=== PATIENT | male | born 1950 | race Asian ===

== ENCOUNTER 2017-10-28 14:46 | Inpatient (IN) | payer MEDICARE, OTHER ==
[~2017-10-28] VITALS: Ht 167.6 cm; Wt 70.5 kg
[~2017-10-28 14:46] MED LIST: AGGR20025 PO; CARV6 PO; DIVA250T45 PO; DOCU100C34 PO; OMEP20 PO; SIMV20TA6 PO
[2017-10-28 15:12] LABS: BASOPHILS % (AUTO) 0.8 % (0.0-2.0); EOSINOPHILS % (AUTO) 5.2 % (1.0-6.0); HEMATOCRIT 36.1 % (41-53); HEMOGLOBIN 12.3 g/dL (13.5-17.5); LYMPHOCYTES # (AUTO) 1.8 K/uL (1.0-4.8); LYMPHOCYTES % (AUTO) 18.7 % (22.0-44.0); MEAN CORPUSCULAR HEMOGLOBIN 30.3 pg (26.0-34.0); MEAN CORPUSCULAR VOLUME 89 fL (80-100); MONOCYTES # (AUTO) 0.6 K/uL (0.1-1.0); MONOCYTES % (AUTO) 6.2 % (2.0-9.0); NEUTROPHILS # (AUTO) 6.5 K/uL (1.8-7.7); NEUTROPHILS % (AUTO) 69.1 % (40.0-70.0); PLATELET COUNT (AUTO) 241 K/uL (150-450); RED BLOOD CELL COUNT(AUTO) 4.05 MIL/uL (4.50-5.90); RED CELL DISTRIBUTION WIDTH 14.3 % (11.5-14.5)
[2017-10-28 15:17] LABS: ANION GAP 10 mmol/L (8-16); CALCIUM, TOTAL 8.8 mg/dL (8.8-10.5); CARBON DIOXIDE 25 mmol/L (22-29); CHLORIDE 98 mmol/L (98-107); CREATININE 1.08 mg/dL (0.60-1.30); GLOMERULAR FILTR. RATE CALC > 60 mL/min (>60); GLUCOSE,RANDOM 195 mg/dL (70-110); POTASSIUM 4.1 mmol/L (3.5-5.1); SODIUM SERUM 133 mmol/L (136-145); UREA NITROGEN, BLOOD 17 mg/dL (7-18)
[2017-10-28 15:20] LABS: PROTHROMBIN TIME 10.7 SEC (9.4-11.6)
[2017-10-28 15:23] LABS: ALANINE AMINOTRANSFERASE 17 U/L (12-78); ALBUMIN 3.8 g/dL (3.4-5.0); ALKALINE PHOSPHATASE 47 U/L (46-116); ASPARTATE AMINOTRANSFERASE 15 U/L (15-37); BILIRUBIN,TOTAL 0.3 mg/dL (0.1-1.0); CREATINE KINASE, TOTAL 74 U/L (39-308); TOTAL PROTEIN, SERUM 8.7 g/dL (6.4-8.2)
[2017-10-28] MEDS ORDERED: ASPIRIN 325 MG EC TABLET PO ONE (15:45)
[2017-10-28 15:58] LABS: APPEARANCE,URINE CLEAR (CLEAR); BILIRUBIN,URINE NEGATIVE (NEGATIVE); GLUCOSE, URINE (UA) 100 mg/dL (NEGATIVE); KETONES,URINE NEGATIVE (NEGATIVE); LEUKOCYTE ESTERASE ,URINE NEGATIVE (NEGATIVE); NITRATE,URINE NEGATIVE (NEGATIVE); OCCULT BLOOD,URINE NEGATIVE (NEGATIVE); PROTEIN,URINE NEGATIVE (NEGATIVE); UROBILINOGEN,URINE 0.2 mg/dL (<=1.0)
[2017-10-28] MEDS ORDERED: METF500T6 PO (16:11)
[2017-10-28] MEDS ORDERED: LISI-662 PO (16:11)
[2017-10-28] MEDS ORDERED: AMLO-511 PO (16:11)
[2017-10-28] MEDS ORDERED: DUTA.5 PO (16:11)
[2017-10-28] MEDS ORDERED: CARV12 PO (16:11)
[2017-10-28] MEDS ORDERED: DIVA250T25 PO (16:11)
[2017-10-28] MEDS ORDERED: ASPI-989 PO (16:11)
[2017-10-28 16:21] LABS: VALPROIC ACID 34 mcg/mL (50-100)
[2017-10-28 16:22] LABS: RBC,URINE None Seen /HPF (0-2); WBC,URINE None Seen /HPF (0-5)
[2017-10-28 16:23] LABS: BACTERIA,URINE None Seen /HPF (None Seen); SQUAMOUS EPITHELIAL CELL,UR Rare /LPF (None Seen)
[2017-10-28] MEDS ORDERED: 0.9% SODIUM CHLORIDE 10 ML SYRINGE IVP PRN (16:30)
[2017-10-28] MEDS ORDERED: ACETAMINOPHEN 325 MG TABLET PO PRN (16:30)
[2017-10-28] MEDS ORDERED: ONDANSETRON HCL 4 MG/2 ML VIAL IVP PRN ×2 (16:30→17:30)
[2017-10-28] MEDS ORDERED: LORazepam 2 MG/ML VIAL IVP PRN (17:30)
[2017-10-28] MEDS ORDERED: ALBUTEROL SULFATE 2.5 MG/0.5 ML NEB SOLUTION NEB PRN (17:30)
[2017-10-28] MEDS ORDERED: INSULIN LISPRO 100 UNITS/ML SQ PRN (17:30)
[2017-10-28] MEDS ORDERED: MAGNESIUM HYDROXIDE SUSPENSION 30 ML UDCUP PO PRN (17:30)
[2017-10-28] MEDS ORDERED: DEXTROSE 50%-WATER 25 GM/50 ML SYRINGE IVP PRN (17:30)
[2017-10-28] MEDS ORDERED: BISACODYL 10 MG RECTAL RECTAL SUPPOSITORY PR PRN (17:30)
[2017-10-28] MEDS ORDERED: IPRATROPIUM BROMIDE 0.5 MG/2.5 ML NEB SOLUTION NEB PRN (17:30)
[2017-10-28] MEDS ORDERED: ZOLPIDEM TARTRATE 5 MG TABLET PO PRN (17:30)
[2017-10-28 18:18] VITALS: BP 153/86
[2017-10-28] MEDS: MetFORMIN HCL 500 MG TABLET PO SCH (19:06)
[2017-10-28 20:10] VITALS: BP 142/89
[2017-10-28] MEDS ORDERED: DUTASTERIDE 0.5 MG CAPSULE PO SCH (21:00)
[2017-10-28] MEDS: CARVEDILOL 6.25 MG TABLET PO SCH (21:46)
[2017-10-28] MEDS: SIMVASTATIN 20 MG TABLET PO SCH (21:46)
[2017-10-29] VITALS (7 sets, daily range): BP systolic 105–142; BP diastolic 60–88
[2017-10-29 06:36] LABS: BASOPHILS % (AUTO) 0.8 % (0.0-2.0); HEMATOCRIT 35.6 % (41-53); HEMOGLOBIN 12.6 g/dL (13.5-17.5); LYMPHOCYTES # (AUTO) 1.6 K/uL (1.0-4.8); LYMPHOCYTES % (AUTO) 23.6 % (22.0-44.0); MEAN CORPUSCULAR HEMOGLOBIN 31.2 pg (26.0-34.0); MEAN CORPUSCULAR HGB CONC 35.3 G/dL (31.0-37.0); MEAN CORPUSCULAR VOLUME 88 fL (80-100); MONOCYTES # (AUTO) 0.8 K/uL (0.1-1.0); MONOCYTES % (AUTO) 11.4 % (2.0-9.0); NEUTROPHILS # (AUTO) 3.9 K/uL (1.8-7.7); NEUTROPHILS % (AUTO) 56.2 % (40.0-70.0); PLATELET COUNT (AUTO) 248 K/uL (150-450); RED BLOOD CELL COUNT(AUTO) 4.03 MIL/uL (4.50-5.90); RED CELL DISTRIBUTION WIDTH 14.2 % (11.5-14.5)
[2017-10-29 07:18] LABS: GLUCOMETER DEV NAME(LOC) 5N 1P; GLUCOSE,POINT OF CARE 83 MG/DL (70-110)
[2017-10-29 07:18] LABS: GLUCOMETER DEV NAME(LOC) PVLAB138; GLUCOSE,POINT OF CARE 83 MG/DL (70-110)
[2017-10-29 07:21] LABS: HEMOGLOBIN A1C 6.3 % (4.5-6.2)
[2017-10-29 08:00] LABS: ALANINE AMINOTRANSFERASE 20 U/L (12-78); ALBUMIN 3.6 g/dL (3.4-5.0); ALKALINE PHOSPHATASE 36 U/L (46-116); ANION GAP 9 mmol/L (8-16); ASPARTATE AMINOTRANSFERASE 14 U/L (15-37); BILIRUBIN,TOTAL 0.4 mg/dL (0.1-1.0); CALCIUM, TOTAL 8.9 mg/dL (8.8-10.5); CARBON DIOXIDE 27 mmol/L (22-29); CHLORIDE 101 mmol/L (98-107); CHOL/HDL RATIO 2.1 (4.2-7.3); CHOLESTEROL 111 mg/dL (131-200); CREATINE KINASE, TOTAL 78 U/L (39-308); CREATININE 0.94 mg/dL (0.60-1.30); FREE T4 (FREE THYROXINE) 0.95 ng/dL (0.76-1.46); GLOMERULAR FILTR. RATE CALC > 60 mL/min (>60); GLUCOSE,RANDOM 88 mg/dL (70-110); HDL CHOLESTEROL 53 mg/dL (40-60); LDL CHOL (CALC.) 44 mg/dL (0-130); POTASSIUM 4.3 mmol/L (3.5-5.1); SODIUM SERUM 137 mmol/L (136-145); THYROID STIMULATING HORMONE 1.38 uIU/mL (0.36-3.74); TOTAL PROTEIN, SERUM 8.4 g/dL (6.4-8.2); TRIGLYCERIDES 70 mg/dL (15-150); UREA NITROGEN, BLOOD 10 mg/dL (7-18); VALPROIC ACID 22 mcg/mL (50-100)
[2017-10-29 08:02] LABS: CREATINE KINASE MB < 0.5 ng/mL (0-5)
[2017-10-29] MEDS ORDERED: GADOBUTROL 1 MMOL/ML 10 ML VIAL IVP ONE (08:32)
[2017-10-29] MEDS: ENOXAPARIN SODIUM 40 MG/0.4 ML PF SYRINGE SQ SCH (08:51)
[2017-10-29] MEDS: LISINOPRIL 10 MG TABLET PO SCH (08:52)
[2017-10-29] MEDS: ASPIRIN 325 MG TABLET PO SCH (08:52)
[2017-10-29] MEDS: MetFORMIN HCL 500 MG TABLET PO SCH ×2 (08:52→17:38)
[2017-10-29] MEDS: CARVEDILOL 6.25 MG TABLET PO SCH ×2 (08:52→20:58)
[2017-10-29] MEDS: PANTOPRAZOLE SODIUM 40 MG DR TABLET PO SCH (08:52)
[2017-10-29 13:13] LABS: FOLATE SERUM 18.6 ng/mL (5.4-)
[2017-10-29 14:03] LABS: GLUCOMETER DEV NAME(LOC) 5S 2Q; GLUCOSE,POINT OF CARE 91 MG/DL (70-110)
[2017-10-29 19:37] LABS: GLUCOMETER DEV NAME(LOC) 5S 2Q; GLUCOSE,POINT OF CARE 98 MG/DL (70-110)
[2017-10-29 20:37] LABS: GLUCOMETER DEV NAME(LOC) 5S 2Q; GLUCOSE,POINT OF CARE 111 MG/DL (70-110)
[2017-10-29] MEDS: SIMVASTATIN 20 MG TABLET PO SCH (20:58)
[2017-10-29] MEDS: DIVALPROEX SODIUM 250 MG DR TABLET PO SCH (20:58)
[2017-10-30 04:52] VITALS: BP 109/78
[2017-10-30 07:40] VITALS: BP 120/58
[2017-10-30 08:08] LABS: GLUCOMETER DEV NAME(LOC) 5S 2Q; GLUCOSE,POINT OF CARE 93 MG/DL (70-110)
[2017-10-30] MEDS: ENOXAPARIN SODIUM 40 MG/0.4 ML PF SYRINGE SQ SCH (08:22)
[2017-10-30] MEDS: DIVALPROEX SODIUM 250 MG DR TABLET PO SCH ×2 (08:22→20:28)
[2017-10-30] MEDS: CARVEDILOL 6.25 MG TABLET PO SCH ×2 (08:22→20:28)
[2017-10-30] MEDS: MetFORMIN HCL 500 MG TABLET PO SCH ×2 (08:22→18:16)
[2017-10-30] MEDS: LISINOPRIL 10 MG TABLET PO SCH (08:22)
[2017-10-30] MEDS: PANTOPRAZOLE SODIUM 40 MG DR TABLET PO SCH (08:22)
[2017-10-30] MEDS: ASPIRIN 325 MG TABLET PO SCH (08:22)
[2017-10-30 09:11] LABS: BASOPHILS % (AUTO) 1.1 % (0.0-2.0); EOSINOPHILS % (AUTO) 6.5 % (1.0-6.0); HEMATOCRIT 37.5 % (41-53); HEMOGLOBIN 12.7 g/dL (13.5-17.5); LYMPHOCYTES # (AUTO) 1.7 K/uL (1.0-4.8); LYMPHOCYTES % (AUTO) 23.9 % (22.0-44.0); MEAN CORPUSCULAR HEMOGLOBIN 30.4 pg (26.0-34.0); MEAN CORPUSCULAR HGB CONC 33.9 G/dL (31.0-37.0); MEAN CORPUSCULAR VOLUME 90 fL (80-100); MONOCYTES # (AUTO) 0.5 K/uL (0.1-1.0); MONOCYTES % (AUTO) 7.1 % (2.0-9.0); NEUTROPHILS # (AUTO) 4.3 K/uL (1.8-7.7); NEUTROPHILS % (AUTO) 61.4 % (40.0-70.0); PLATELET COUNT (AUTO) 253 K/uL (150-450); RED BLOOD CELL COUNT(AUTO) 4.18 MIL/uL (4.50-5.90); RED CELL DISTRIBUTION WIDTH 14.6 % (11.5-14.5)
[2017-10-30 09:26] LABS: ANION GAP 8 mmol/L (8-16); CALCIUM, TOTAL 8.9 mg/dL (8.8-10.5); CARBON DIOXIDE 27 mmol/L (22-29); CHLORIDE 98 mmol/L (98-107); CREATININE 1.04 mg/dL (0.60-1.30); GLOMERULAR FILTR. RATE CALC > 60 mL/min (>60); GLUCOSE,RANDOM 168 mg/dL (70-110); POTASSIUM 4.9 mmol/L (3.5-5.1); SODIUM SERUM 133 mmol/L (136-145); UREA NITROGEN, BLOOD 12 mg/dL (7-18)
[2017-10-30 11:28] VITALS: BP 118/68
[2017-10-30 12:28] LABS: GLUCOMETER DEV NAME(LOC) 5S 2Q; GLUCOSE,POINT OF CARE 103 MG/DL (70-110)
[2017-10-30 15:37] VITALS: BP 112/65
[2017-10-30 20:00] VITALS: BP 155/84
[2017-10-30] MEDS: SIMVASTATIN 20 MG TABLET PO SCH (20:28)
[2017-10-31 00:17] VITALS: BP 150/97
[2017-10-31 05:12] VITALS: BP 112/69
[2017-10-31 05:37] LABS: EOSINOPHILS % (AUTO) 7.3 % (1.0-6.0); HEMATOCRIT 35.8 % (41-53); HEMOGLOBIN 12.4 g/dL (13.5-17.5); MEAN CORPUSCULAR HEMOGLOBIN 30.4 pg (26.0-34.0); MEAN CORPUSCULAR HGB CONC 34.5 G/dL (31.0-37.0); MEAN CORPUSCULAR VOLUME 88 fL (80-100); MONOCYTES # (AUTO) 0.8 K/uL (0.1-1.0); MONOCYTES % (AUTO) 10.6 % (2.0-9.0); NEUTROPHILS # (AUTO) 4.2 K/uL (1.8-7.7); NEUTROPHILS % (AUTO) 55.1 % (40.0-70.0); PLATELET COUNT (AUTO) 243 K/uL (150-450); RED BLOOD CELL COUNT(AUTO) 4.06 MIL/uL (4.50-5.90); RED CELL DISTRIBUTION WIDTH 14.1 % (11.5-14.5)
[2017-10-31 05:55] LABS: ANION GAP 9 mmol/L (8-16); CALCIUM, TOTAL 8.8 mg/dL (8.8-10.5); CARBON DIOXIDE 28 mmol/L (22-29); CHLORIDE 99 mmol/L (98-107); CREATININE 1.04 mg/dL (0.60-1.30); GLOMERULAR FILTR. RATE CALC > 60 mL/min (>60); GLUCOSE,RANDOM 93 mg/dL (70-110); POTASSIUM 4.9 mmol/L (3.5-5.1); SODIUM SERUM 136 mmol/L (136-145); UREA NITROGEN, BLOOD 11 mg/dL (7-18)
[2017-10-31 07:25] VITALS: BP 120/75
[2017-10-31] MEDS: MetFORMIN HCL 500 MG TABLET PO SCH (08:00)
[2017-10-31] MEDS: ENOXAPARIN SODIUM 40 MG/0.4 ML PF SYRINGE SQ SCH (08:02)
[2017-10-31] MEDS: PANTOPRAZOLE SODIUM 40 MG DR TABLET PO SCH (08:02)
[2017-10-31] MEDS: DIVALPROEX SODIUM 250 MG DR TABLET PO SCH (08:02)
[2017-10-31] MEDS: LISINOPRIL 10 MG TABLET PO SCH (08:02)
[2017-10-31] MEDS: ASPIRIN 325 MG TABLET PO SCH (08:02)
[2017-10-31] MEDS: CARVEDILOL 6.25 MG TABLET PO SCH (08:02)
[2017-10-31 09:33] LABS: GLUCOMETER DEV NAME(LOC) 5S 2Q; GLUCOSE,POINT OF CARE 83 MG/DL (70-110)
[2017-10-31 09:37] LABS: GLUCOMETER DEV NAME(LOC) 5S 2Q; GLUCOSE,POINT OF CARE 169 MG/DL (70-110)
[2017-10-31 09:38] LABS: GLUCOMETER DEV NAME(LOC) 5S 2Q; GLUCOSE,POINT OF CARE 92 MG/DL (70-110)
[2017-10-31 11:14] VITALS: BP 114/73
[2017-10-31 15:18] VITALS: BP 121/74
[2017-10-31 18:38] LABS: GLUCOMETER DEV NAME(LOC) 5N 1P; GLUCOSE,POINT OF CARE 100 MG/DL (70-110)
[2017-10-31 18:38] LABS: GLUCOMETER DEV NAME(LOC) 5N 1P; GLUCOSE,POINT OF CARE 89 MG/DL (70-110)
== END 2017-10-31 17:20 | disposition home or self-care (01) | DRG 69 ==
LOC: EMS 14:47 → 5N 16:44
PROVIDERS: ADMIT Internal Medicine Geriatric Medicine; ATTEND Internal Medicine Geriatric Medicine
DX: G45.9 Transient cerebral ischemic attack, unspecified (principal); G20 Parkinson's disease; I71.2 Thoracic aortic aneurysm, without rupture; R47.01 Aphasia; F01.50 Vascular dementia, unspecified severity, without behavioral disturbance, psychotic disturbance, mood disturbance, and anxiety; E11.9 Type 2 diabetes mellitus without complications; E78.00 Pure hypercholesterolemia, unspecified; E78.5 Hyperlipidemia, unspecified; F39 Unspecified mood [affective] disorder; I10 Essential (primary) hypertension; I44.0 Atrioventricular block, first degree; R27.0 Ataxia, unspecified; F32.9 Major depressive disorder, single episode, unspecified; Z79.899 Other long term (current) drug therapy; Z79.1 Long term (current) use of non-steroidal anti-inflammatories (NSAID); Z86.73 Personal history of transient ischemic attack (TIA), and cerebral infarction without residual deficits; Z83.3 Family history of diabetes mellitus; Z82.49 Family history of ischemic heart disease and other diseases of the circulatory system
CPT/HCPCS: 70544; 70553; 82306; 82607; 82746; 83036; 83735; 84439; 84443; 92610; 93005; 93306; 93880; 97162; 97165; 97530; 97535; 99291; A9585; J1650

== ENCOUNTER 2019-06-11 19:28 | Emergency (ER) | payer MEDICARE, OTHER ==
[~2019-06-11] VITALS: Ht 167.6 cm; Wt 72.7 kg
[~2019-06-11 19:28] MED LIST changes: -AGGR20025 PO; +AMLO5TAB9 PO; +ASPI-989 PO; +CARV12 PO; -CARV6 PO; +DIVA-76 PO; -DIVA250T45 PO; -DOCU100C34 PO; +DUTA.5 PO; +LISI-662 PO; +METF-960 PO; +SIMV-43 PO; -SIMV20TA6 PO
[2019-06-11 19:52] LABS: GLUCOSE,POINT OF CARE 83 MG/DL (70-110)
[2019-06-11] MEDS ORDERED: LOSA25TA41 PO (19:53)
[2019-06-11] MEDS ORDERED: PROP20TA18 PO (19:53)
[2019-06-11] MEDS ORDERED: TAMS-13 PO (19:53)
[2019-06-11 21:01] VITALS: BP 132/74
== END 2019-06-11 21:18 | disposition home or self-care (01) ==
LOC: EMS 19:29
DX: B02.9 Zoster without complications (principal); I10 Essential (primary) hypertension; E78.00 Pure hypercholesterolemia, unspecified; Z86.73 Personal history of transient ischemic attack (TIA), and cerebral infarction without residual deficits; Z79.82 Long term (current) use of aspirin